=== PATIENT | female | born 1990 | race Caucasian/White ===

== ENCOUNTER → 2024-08-06 14:57 | Outpatient (REF) | payer OTHER, SELFPAY | LOC: HWRAD 14:57 | PROVIDERS: ATTENDING PHYSICIAN Family Medicine | DX: R22.1 Localized swelling, mass and lump, neck (principal) | CPT/HCPCS: 76536 ==

== ENCOUNTER → 2024-12-09 15:30 | Outpatient (REF) | payer OTHER, SELFPAY | LOC: PNTC 15:30 | PROVIDERS: ATTENDING PHYSICIAN Obstetrics & Gynecology | DX: O09.529 Supervision of elderly multigravida, unspecified trimester (principal); O99.210 Obesity complicating pregnancy, unspecified trimester | CPT/HCPCS: 59025 ==

== ENCOUNTER 2025-01-01 00:42 | Inpatient (IN) | payer OTHER, SELFPAY ==
[2025-01-01 01:42] LABS: Hematocrit 32.9 % (37.0-47.0); Hemoglobin 11.0 g/dL (12.0-16.0); Mean Corp Hgb Conc. 33.4 g/dL (33.0-37.0); Mean Corpuscular Volume 80.6 fL (81.0-99.0); Nucleated Red Blood Cells % 0 %; Platelet Count 256 10^3/uL (130-400); Red Cell Dist. Width 16.7 % (11.5-14.5)
[2025-01-01 01:58] LABS: ALT (SGPT) 22 U/L (0-35); AST (SGOT) 26 U/L (14-36); Albumin 3.6 g/dl (3.5-5.0); Alkaline Phosphatase 136 U/L (38-126); Blood Urea Nitrogen 9 mg/dl (7-17); Calcium 9.7 mg/dl (8.4-10.2); Carbon Dioxide 24 mmol/L (22-30); Chloride 105 mmol/L (98-107); Glucose 106 mg/dl (70-99); Potassium 4.0 mmol/L (3.5-5.1); Sodium 133 mmol/L (135-145); Total Protein 6.5 g/dl (6.3-8.2); eGFR > 60.00
[2025-01-01 04:14] VITALS: BP 143/90; BMI 38.1
[2025-01-02 06:22] LABS: Hematocrit 27.3 % (37.0-47.0); Hemoglobin 8.9 g/dL (12.0-16.0)
[2025-01-04 14:19] LABS: Syphilis/T. pallidum Ab Reflex Negative (Negative)
== END 2025-01-02 15:13 | disposition home or self-care (01) | DRG 776 ==
LOC: LDRP 00:42
PROVIDERS: ADMITTING PHYSICIAN Student in an Organized Health Care Education/Training Program
PROC: 0HQ9XZZ Repair Perineum Skin, External Approach (ICD-10-PCS; 2025-01-01)
DX: O70.0 First degree perineal laceration during delivery (principal); O99.824 Streptococcus B carrier state complicating childbirth; Z3A.39 39 weeks gestation of pregnancy; Z37.0 Single live birth
CPT/HCPCS: 36415; 80053; 82570; 84156; 85014; 85018; 85025; 86780; 86850; 86900; 86901; 88307

== ENCOUNTER → 2025-06-03 09:59 | Outpatient (REF) | payer OTHER, SELFPAY | LOC: HWRAD 09:59 | PROVIDERS: ATTENDING PHYSICIAN Family Medicine | DX: R10.32 Left lower quadrant pain (principal) | CPT/HCPCS: 76830; 76856 ==